=== PATIENT | female | born 1980 | race Caucasian/White ===

== ENCOUNTER → 2018-09-22 | Outpatient (CLI) | payer BC ==
[2018-09-22 14:27] VITALS: BP 116/72; PULSE 66; TEMP 97.7; BMI 35.3
--- NOTE | 2018-09-22 16:48 | P.HPOB ---
History of Present Illness H&P Date: 09/22/18 Chief Complaint: The patient is here for her routine gynecologic exam. This is a 38-year-old with an LMP of 09/18/18. The patient is here to establish with this office. She has been using condoms. She states her boyfriend had a sexual relationship outside of their relationship recently where he did not use a condom. He tested positive for chlamydia. He and the patient were treated with a one-time dose of Zithromax. She denies having vaginal discharge. They completed the Zithromax this past week. She states it is been about 8 years since her last pelvic exam. Her menses are regular every month lasting 7 days with 3 days of heavier flow. Her flow can be very heavy at times where she has to change her protection up to every 15 minutes. She states she occasionally has brief pelvic pains in the area of her ovaries. She denies fever . She denies any current pain. Review of Systems She states she lost about 90 pounds, but she has gained about 25 pounds back. She has been on phentiramine for weight loss. She denies respiratory, cardiac, or G.I. problems. Past Medical History Past Medical History: Asthma (Mild) Additional Past Medical History / Comment(s): kidney stones, and possible lupus. 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 She was treated for possible chlamydia after her boyfriend was diagnosed with chlamydia in 2018. History of Any Multi-Drug Resistant Organisms: None Reported Past Surgical History: No Surgical Hx Reported Past Psychological History: No Psychological Hx Reported, Anxiety Smoking Status: Current every day smoker (Half a pack per day) Past Alcohol Use History: Rare (2 per month) Past Drug Use History: Marijuana (Infrequently) Additional History: She is single but has been with her boyfriend since 2016. She does not live with him. 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 - Past Family History Mother Family Medical History: Diabetes Mellitus Additional Family Medical History / Comment(s): Maternal great-grandmother had ovarian cancer. Medications and Allergies Home Medications Medication Instructions Recorded Confirmed Type Phentermine HCl PO DAILY 09/22/18 History Allergies Allergy/AdvReac Type Severity Reaction Status Date / Time cephalexin monohydrate Allergy Unknown Verified 09/22/18 14:24 [From Keflex] ciprofloxacin [From Cipro] Allergy Unknown Verified 09/22/18 14:24 ciprofloxacin HCl Allergy Unknown Verified 09/22/18 14:24 [From Cipro] lactose AdvReac Unknown Verified 09/22/18 14:24 Exam Vital Signs Temp Pulse BP 09/22/18 14:24 97.7 F 66 116/72 Intake and Output 09/22/18 09/22/18 09/22/18 06:59 14:59 22:59 Other: Weight 93.44 kg Height 5'4", weight 206 pounds, BMI 35.4. This is a well-developed well-nourished heavyset female who is alert and oriented times 3 in no acute distress. HEENT: Within normal limits. NECK: Supple without mass or thyromegaly. CHEST AND LUNGS: Clear to auscultation. HEART: Regular rate and rhythm. BREASTS: Are without mass or discharge. AXILLARY EXAM: Negative for adenopathy. BACK: Negative for CVA tenderness. ABDOMEN: Soft, nontender, without palpable masses. PELVIC EXAM: Normal external genitalia. Cervix and vagina appear normal. There is no unusual discharge. The cervix does not appear inflamed. There is no cervical motion tenderness. There is no evidence of prolapse. The uterus is midposition, nongravid size and nontender. There are no palpable adnexal masses or tenderness. RECTAL EXAM: negative for mass or tenderness and is negative for occult blood. EXTREMITIES: Nontender. IMPRESSION: 1. 38-year-old female with normal gynecologic exam, currently using condoms. 2. The patient was treated for possible chlamydia after her boyfriend was diagnosed with this after admitting a sexual encounter outside of their relationship. 3. Intermittent brief pelvic pains in the past with no current symptoms and no significant physical findings at this time. 4. Mild hypermenorrhea. PLAN: 1. Pap smear was performed. 2. Self breast awareness was discussed with the patient. 3. GC and chlamydia testing from the cervix have been obtained. Will also do blood testing for STDs including HIV, RPR, hepatitis B surface antigen, and hepatitis C antibody. 4. STD prevention was discussed. I stress the importance of being in a monogamous relationship and using condoms to help prevent STDs. 5. We discussed other control options including oral contraception, IUD in tubal sterilization. At this time I do not feel she is a good candidate for oral contraception since she is a smoker over the age of 35. She'll consider the options including the Mirena IUD. 6. Meclofenamate sodium 100 mg TID PRN for heavy menstrual flow up to 6 days per cycle. The patient will keep a menstrual calendar. 7. If her hypermenorrhea has not significantly improved, we will consider other options including oral contraception if she stops smoking, Mirena IUD and tubal sterilization with endometrial ablation. 8. She will also return in one year and PRN.
[2018-09-23 04:58] LABS: HIV 1 AB Non-Reactive (Non-Reactive); HIV AB P24 Non-Reactive (Non-Reactive); HIV P24 AG Non-Reactive (Non-Reactive)
[2018-09-23 12:03] LABS: Hepatitis C IgG Antibody Non-Reactive (Non-Reactive)
== END | disposition home or self-care (01) ==
LOC: WWCWWP 14:02
PROVIDERS: ATTEND Obstetrics & Gynecology
DX: Z11.3 Encounter for screening for infections with a predominantly sexual mode of transmission (principal)
CPT/HCPCS: 36415; 86780; 86803; 87340; 87390

== ENCOUNTER → 2019-07-15 | Outpatient (CLI) | payer OTHER ==
--- NOTE | 2019-07-15 12:51 | XR ---
EXAMINATION TYPE: XR knee limited RT DATE OF EXAM: 07/15/2019 CLINICAL HISTORY: Right knee pain for years. TECHNIQUE: Two views of the right knee are obtained. COMPARISON: None. FINDINGS: There is no acute fracture/dislocation evident in right knee. Mild to moderate narrowing m edial tibiofemoral compartment with mild spurring. Mild narrowing patellofemoral compartment and lat eral tibiofemoral compartment. Increased density suprapatellar bursa suspicious for small to moderate size joint effusion. IMPRESSION: As above.
== END | disposition home or self-care (01) ==
LOC: RADXRMAIN 12:28
PROVIDERS: ATTEND Internal Medicine
DX: M89.8X6 Other specified disorders of bone, lower leg (principal)

== ENCOUNTER → 2019-07-29 | Outpatient (CLI) | payer OTHER | END | disposition home or self-care (01) | LOC: RADUSWWP 12:32 | PROVIDERS: ATTEND Internal Medicine | DX: Z53.9 Procedure and treatment not carried out, unspecified reason (principal) ==

== ENCOUNTER 2019-08-02 00:51 | Emergency (ER) | payer OTHER ==
[2019-08-02 01:02] VITALS: TEMP 98.1
[2019-08-02] MEDS ORDERED: ONDANSETRON 4 MG/2 ML VIAL IVP STA (01:26)
[2019-08-02 01:43] LABS: Appearance,Urine Clear (Clear); Bilirubin,Urine Negative (Negative); Blood,Urine Negative (Negative); Color,Urine Yellow; Glucose,Urine (UA) Negative (Negative); Ketones,Urine Negative (Negative); Leukocyte Esterase,Urine Negative (Negative); Nitrite,Urine Negative (Negative); PH, Urine 5.5 (5.0-8.0); Protein,Urine Negative (Negative); Specific Gravity,Urine 1.029 (1.001-1.035); Urobilinogen,Urine <2.0 mg/dL (<2.0)
[2019-08-02 01:44] LABS: Basophils # (A) 0.1 k/uL (0-0.2); Basophils % (A) 2 %; Eosinophils # (A) 0.2 k/uL (0-0.7); Eosinophils % (A) 3 %; HCT 37.6 % (34.0-46.0); HGB 12.4 gm/dL (11.4-16.0); Lymphocytes # (A) 1.9 k/uL (1.0-4.8); Lymphocytes % (A) 24 %; MCH 29.7 pg (25.0-35.0); MCHC 33.1 g/dL (31.0-37.0); MCV 89.8 fL (80.0-100.0); Mean Platelet Volume 7.1; Monocytes # (A) 0.4 k/uL (0-1.0); Monocytes % (A) 5 %; Neutrophils # (A) 5.2 k/uL (1.3-7.7); Neutrophils % (A) 66 %; Platelet Count 193 k/uL (150-450); RBC 4.19 m/uL (3.80-5.40); RDW 13.9 % (11.5-15.5)
[2019-08-02 01:51] LABS: ALT 31 U/L (9-52); AST 21 U/L (14-36); African American GFR (CKD) >90 (>60 ml/min/1.73 sqM); Albumin 4.4 g/dL (3.5-5.0); Alkaline Phosphatase 75 U/L (38-126); Amylase 49 U/L (30-110); Anion Gap 8 mmol/L; Blood Urea Nitrogen 18 mg/dL (7-17); Calcium 9.9 mg/dL (8.4-10.2); Carbon Dioxide 27 mmol/L (22-30); Chloride 106 mmol/L (98-107); Glucose 118 mg/dL (74-99); Potassium 3.8 mmol/L (3.5-5.1); Sodium 141 mmol/L (137-145); Total Bilirubin 0.2 mg/dL (0.2-1.3); Total Protein 7.3 g/dL (6.3-8.2)
[2019-08-02] MEDS ORDERED: KETOROLAC 30 MG/ML 1 ML VIAL IVP STA (02:52)
[2019-08-02 03:00] VITALS: BP 121/76; PULSE 60; RESP 16
--- NOTE | 2019-08-02 03:06 | CT ---
EXAM: CT Abdomen and Pelvis With Intravenous Contrast CLINICAL HISTORY: ITS.REASON CT Reason: abd pain TECHNIQUE: Axial computed tomography images of the abdomen and pelvis with intravenous contrast. CTDI is 18 mGy and DLP is 626 mGy-cm. This CT exam was performed using one or more of the following dose reduction techniques: automated exposure control, adjustment of the mA and/or kV according to patient size, and/or use of iterative reconstruction technique. COMPARISON: 11/05/15 CT abdomen FINDINGS: Lung bases: No mass. No consolidation. ABDOMEN: Liver: Mild steatosis. Gallbladder and bile ducts: Unremarkable. Pancreas: Unremarkable. Spleen: Unremarkable. Adrenals: Unremarkable. Kidneys and ureters: No hydronephrosis. Punctate nonobstructive stone in the left kidney. Stomach and bowel: No bowel obstruction. No bowel wall thickening. Copious amounts of stool throughout the colon. PELVIS: Appendix: No evidence of appendicitis. Bladder: Unremarkable. Reproductive: Fluid-filled endometrium. 3 cm bilateral ovaries. ABDOMEN and PELVIS: Intraperitoneal space: Unremarkable. Bones/joints: No acute fractures. Soft tissues: Unremarkable. Vasculature: No abdominal aortic aneurysm. Lymph nodes: No enlarged lymph nodes. IMPRESSION: 1. Punctate nonobstructive stone in the left kidney. 2. Mild hepatic steatosis 3. Copious amounts of stool throughout the colon. 4. Fluid-filled endometrium, possibly physiologic. No free fluid in the pelvis.
--- NOTE | 2019-08-02 03:14 | ED ---
Abdominal Pain HPI - General Chief Complaint: Abdominal Pain Stated Complaint: Abd Pain Time Seen by Provider: 08/02/19 01:08 Source: patient Mode of arrival: ambulatory Limitations: no limitations - History of Present Illness Initial Comments: Patient is a 39-year-old female presenting to the emergency department with a chief complaint of abdominal pain. Patient reports intermittent left lower quadrant pain for the past 2 months. Patient reports over the last week the pain is increased in severity. Patient reports the pain is not related to food intake. Patient does report nausea but no vomiting. Patient reports alternating constipation and diarrhea over the past week. Patient reports her last bowel movement was today. Patient denies increased urgency, frequency or dysuria. Patient states that she could possibly be . - Related Data Home Medications Medication Instructions Recorded Confirmed Phentermine HCl PO DAILY 09/22/18 Previous Rx's Medication Instructions Recorded Meclofenamate Sodium 100 mg PO TID PRN #25 capsule 09/22/18 metroNIDAZOLE [Flagyl] 500 mg PO BID 7 Days #14 tab 09/30/18 Pantoprazole Sodium [Protonix] 20 mg PO DAILY #14 tablet. 08/02/19 Allergies Allergy/AdvReac Type Severity Reaction Status Date / Time cephalexin monohydrate Allergy Unknown Verified 08/02/19 01:02 [From Keflex] ciprofloxacin [From Cipro] Allergy Unknown Verified 08/02/19 01:02 ciprofloxacin HCl Allergy Unknown Verified 08/02/19 01:02 [From Cipro] lactose AdvReac Unknown Verified 08/02/19 01:02 Review of Systems ROS Statement: Those systems with pertinent positive or pertinent negative responses have been documented in the HPI. ROS Other: All systems not noted in ROS Statement are negative. Past Medical History Past Medical History: Asthma Additional Past Medical History / Comment(s): kidney stones, and possible lupus. 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 She was treated for possible chlamydia after her boyfriend was diagnosed with chlamydia in 2018. History of Any Multi-Drug Resistant Organisms: None Reported Past Surgical History: No Surgical Hx Reported Past Psychological History: Anxiety Smoking Status: Current every day smoker Past Alcohol Use History: Rare Past Drug Use History: Marijuana - Past Family History Mother Family Medical History: Diabetes Mellitus Additional Family Medical History / Comment(s): Maternal great-grandmother had ovarian cancer. General Exam Limitations: no limitations General appearance: alert, in no apparent distress Head exam: Present: atraumatic, normocephalic, normal inspection Eye exam: Present: normal appearance, PERRL, EOMI Pupils: Present: normal accommodation ENT exam: Present: normal exam, mucous membranes moist, normal external ear exam Neck exam: Present: normal inspection, full ROM Respiratory exam: Present: normal lung sounds bilaterally Cardiovascular Exam: Present: regular rate, normal rhythm, normal heart sounds GI/Abdominal exam: Present: soft, tenderness (Left lower quadrant tenderness. McBurney point tenderness, negative Rovsing, negative obturator, negative psoas. Left lower quadrant tenderness.), normal bowel sounds. Absent: distended, guarding, rebound Extremities exam: Present: normal inspection, full ROM, normal capillary refill, other Back exam: Present: normal inspection, full ROM Neurological exam: Present: alert, oriented X3 Psychiatric exam: Present: normal affect, normal mood Skin exam: Present: warm, intact, normal color Course Vital Signs 08/02/19 08/02/19 00:59 02:59 Temperature 98.1 F Pulse Rate 94 60 Respiratory 20 16 Rate Blood Pressure 127/75 121/76 O2 Sat by Pulse 98 96 Oximetry Medical Decision Making - Medical Decision Making Patient is a 39-year-old female presenting to the emergency department with the chief complaint of left lower quadrant abdominal pain. Patient has had the pain in the left lower quadrant for approximately 2 months as increased in severity over the past week patient does report nausea but no vomiting. Patient is also very episodes of constipation and diarrhea. On physical examination patient does appear to have right lower quadrant and right upper quadrant tenderness as well patient does have positive McBurney point tenderness negative Rovsing obturator or psoas. Patient does have negative [place]. Patient reports pain is not related to food intake. Patient was unaware of the right upper quadrant and right lower quadrant pain until I palpated regions. CT of the abdomen and pelvis is indicative of a renal stone in the left kidney that is nonobstructive. Mild hepatic steatosis. Copious amounts of stool noted throughout the colon. I suspect the patient to have somewhat pain due to the moderate amount of stool retention in the colon. CBC, CMP and UA unremarkable. Patient will be given magnesium citrate and will be discharged with Zofran. Patient advised to follow with primary care. Patient vised alternate between Tylenol and ibuprofen for pain control. Strict return parameters were thoroughly discussed with patient is understanding and agreeable. On discharge patient vital stable. Case discus sed physician. - Lab Data Result diagrams: 08/02/19 01:33 08/02/19 01:33 Lab Results 08/02/19 08/02/19 08/02/19 Range/Units 01:33 01:33 01:33 WBC 8.0 (3.8-10.6) k/uL RBC 4.19 (3.80-5.40) m/uL Hgb 12.4 (11.4-16.0) gm/dL Hct 37.6 (34.0-46.0) % MCV 89.8 (80.0-100.0) fL MCH 29.7 (25.0-35.0) pg MCHC 33.1 (31.0-37.0) g/dL RDW 13.9 (11.5-15.5) % Plt Count 193 (150-450) k/uL Neutrophils % 66 % Lymphocytes % 24 % Monocytes % 5 % Eosinophils % 3 % Basophils % 2 % Neutrophils # 5.2 (1.3-7.7) k/uL Lymphocytes # 1.9 (1.0-4.8) k/uL Monocytes # 0.4 (0-1.0) k/uL Eosinophils # 0.2 (0-0.7) k/uL Basophils # 0.1 (0-0.2) k/uL Sodium 141 (137-145) mmol/L Potassium 3.8 (3.5-5.1) mmol/L Chloride 106 (98-107) mmol/L Carbon Dioxide 27 (22-30) mmol/L Anion Gap 8 mmol/L BUN 18 H (7-17) mg/dL Creatinine 0.68 (0.52-1.04) mg/dL Est GFR (CKD-EPI)AfAm >90 (>60 ml/min/1.73 sqM) Est GFR (CKD-EPI)NonAf >90 (>60 ml/min/1.73 sqM) Glucose 118 H (74-99) mg/dL Calcium 9.9 (8.4-10.2) mg/dL Total Bilirubin 0.2 (0.2-1.3) mg/dL AST 21 (14-36) U/L ALT 31 (9-52) U/L Alkaline Phosphatase 75 (38-126) U/L Total Protein 7.3 (6.3-8.2) g/dL Albumin 4.4 (3.5-5.0) g/dL Amylase 49 (30-110) U/L Lipase 59 (23-300) U/L Urine Color Urine Appearance (Clear) Urine pH (5.0-8.0) Ur Specific [place] (1.001-1.035) Urine Protein (Negative) Urine Glucose (UA) (Negative) Urine Ketones (Negative) Urine Blood (Negative) Urine Nitrite (Negative) Urine Bilirubin (Negative) Urine Urobilinogen (<2.0) mg/dL Ur Leukocyte Esterase (Negative) Urine HCG, Qual Not Detected (Not Detectd) 08/02/19 Range/Units 01:33 WBC (3.8-10.6) k/uL RBC (3.80-5.40) m/uL Hgb (11.4-16.0) gm/dL Hct (34.0-46.0) % MCV (80.0-100.0) fL MCH (25.0-35.0) pg MCHC (31.0-37.0) g/dL RDW (11.5-15.5) % Plt Count (150-450) k/uL Neutrophils % % Lymphocytes % % Monocytes % % Eosinophils % % Basophils % % Neutrophils # (1.3-7.7) k/uL Lymphocytes # (1.0-4.8) k/uL Monocytes # (0-1.0) k/uL Eosinophils # (0-0.7) k/uL Basophils # (0-0.2) k/uL Sodium (137-145) mmol/L Potassium (3.5-5.1) mmol/L Chloride (98-107) mmol/L Carbon Dioxide (22-30) mmol/L Anion Gap mmol/L BUN (7-17) mg/dL Creatinine (0.52-1.04) mg/dL Est GFR (CKD-EPI)AfAm (>60 ml/min/1.73 sqM) Est GFR (CKD-EPI)NonAf (>60 ml/min/1.73 sqM) Glucose (74-99) mg/dL Calcium (8.4-10.2) mg/dL Total Bilirubin (0.2-1.3) mg/dL AST (14-36) U/L ALT (9-52) U/L Alkaline Phosphatase (38-126) U/L Total Protein (6.3-8.2) g/dL Albumin (3.5-5.0) g/dL Amylase (30-110) U/L Lipase (23-300) U/L Urine Color Yellow Urine Appearance Clear (Clear) Urine pH 5.5 (5.0-8.0) Ur Specific [place] 1.029 (1.001-1.035) Urine Protein Negative (Negative) Urine Glucose (UA) Negative (Negative) Urine Ketones Negative (Negative) Urine Blood Negative (Negative) Urine Nitrite Negative (Negative) Urine Bilirubin Negative (Negative) Urine Urobilinogen <2.0 (<2.0) mg/dL Ur Leukocyte Esterase Negative (Negative) Urine HCG, Qual (Not Detectd) Disposition Clinical Impression: Abdominal pain Disposition: HOME SELF-CARE Condition: Stable Instructions (If sedation given, give patient instructions): Abdominal Pain (ED) Additional Instructions: Please take prescribed medication as directed. Please return to emergency department is symptoms worsen. Alternate between Tylenol and ibuprofen for pain control. Prescriptions: Pantoprazole Sodium [Protonix] 20 mg PO DAILY #14 tablet.dr Is patient prescribed a controlled substance at d/c from ED?: No Referrals: Marie Luis MD [Primary Care Provider] - 1-2 days Time of Disposition: 04:32
[2019-08-02] MEDS ORDERED: MAGNESIUM CITRATE 296 ML BOTTLE PO ONE (04:14)
== END 2019-08-02 04:29 | disposition home or self-care (01) ==
LOC: EC 00:51
DX: R10.32 Left lower quadrant pain (principal); R11.0 Nausea; R19.7 Diarrhea, unspecified; K76.0 Fatty (change of) liver, not elsewhere classified; N20.0 Calculus of kidney; F17.200 Nicotine dependence, unspecified, uncomplicated; Z79.899 Other long term (current) drug therapy; Z88.1 Allergy status to other antibiotic agents; Z91.048 Other nonmedicinal substance allergy status
CPT/HCPCS: 99284; 96374; 96375; 36415; 80053; 82150; 83690; 85025; 81003; 81025; 74177; J2405; J1885; Q9967

== ENCOUNTER → 2019-12-08 | Outpatient (CLI) | payer BC, OTHER ==
[2019-12-08 11:31] VITALS: BP 123/85; PULSE 86; RESP 18; TEMP 97.7
--- NOTE | 2019-12-08 13:47 | P.HPOB ---
History of Present Illness H&P Date: 12/08/19 Chief Complaint: The patient is here for her routine gynecologic exam. This is a 39-year-old with an LMP of 11/06/2019. The patient has not been using anything for control. She states she has been in a relationship on and off with her boyfriend since 2015. She was last sexually active earlier this month and states he has been her only partner during the past 3 years. They were both treated for chlamydia in September 2018. She had an abnormal Pap smear on 09/22/2018 which showed ASCUS and positive high-risk HPV. 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 The patient states she has been experiencing intermittent abdominal and pelvic cramping and abdominal bloating fairly frequently over the past 1-1/2 years. She states that at times her abdomen can look very big and almost in appearance. She has done several tests that have all been negative. She feels that the cramping seems to occur around the time of ovulation, but can occur any time during the month. Her menstrual periods have been heavier with clots and are lasting one week. Menstrual periods are regular every month. She has not been using control and not doing anything to prevent , yet she states she is not interested in getting . Review of Systems She is gained about 30 pounds over the past year. Respiratory: She is getting over a cold and has recently treated for asthma and has a new inhaler for this. She denies cardiac or GI problems, but has been having abdominal bloating and distention as in the HPI. Past Medical History Past Medical History: Asthma Additional Past Medical History / Comment(s): kidney stones, and possible lupus. 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 She was treated for possible chlamydia after her boyfriend was diagnosed with chlamydia in 2018. Also treated for Trichomonas in the past. Low-grade MADAY cervical biopsy on 12/07/2018. History of Any Multi-Drug Resistant Organisms: None Reported Past Surgical History: No Surgical Hx Reported Past Psychological History: Anxiety Smoking Status: Current some day smoker (0-1 per day) Past Alcohol Use History: Rare Past Drug Use History: Marijuana (Occasional marijuana usage.) Additional History: She is single and has been with her boyfriend on and off since 2015. She does not live with him. 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 - Past Family History Mother Family Medical History: Diabetes Mellitus Additional Family Medical History / Comment(s): Maternal great-grandmother had ovarian cancer. Medications and Allergies Home Medications Medication Instructions Recorded Confirmed Type Phentermine HCl 1 tab PO DAILY 09/22/18 12/08/19 History Pantoprazole Sodium [Protonix] 20 mg PO DAILY #14 tablet. 08/02/19 12/08/19 Rx Albuterol Inhaler [Ventolin Hfa 1 - 2 puff INHALATION RT-Q6H PRN 12/08/19 12/08/19 History Inhaler] Iron 18 mg PO DAILY 12/08/19 12/08/19 History Loratadine [Claritin] 10 mg PO DAILY 12/08/19 12/08/19 History Montelukast [Singulair] 10 mg PO DAILY 12/08/19 12/08/19 History Oxybutynin ER [Ditropan Xl] 0 mg PO DAILY 12/08/19 12/08/19 History methylPREDNISolone [Medrol Dose 4 mg PO DIRECTED 12/08/19 12/08/19 History Pack] Allergies Allergy/AdvReac Type Severity Reaction Status Date / Time cephalexin monohydrate Allergy Unknown Verified 12/08/19 11:21 [From Keflex] ciprofloxacin [From Cipro] Allergy Unknown Verified 12/08/19 11:21 ciprofloxacin HCl Allergy Unknown Verified 12/08/19 11:21 [From Cipro] lactose AdvReac Unknown Verified 12/08/19 11:21 Exam Vital Signs Temp Pulse Resp BP Pulse Ox 12/08/19 11:27 97.7 F 86 18 123/85 95 Intake and Output 12/07/19 12/08/19 12/08/19 22:59 06:59 14:59 Other: Weight 106.141 kg Height 5 feet 4 inches, weight 234 pounds, BMI 40.2. This is a well-developed well-nourished white female who is alert and oriented times 3 in no acute distress. HEENT: Within normal limits. NECK: Supple without mass or thyromegaly. CHEST AND LUNGS: Moderate scattered inspiratory rhonchi with mildly prolonged expiration bilaterally. The rhonchi improve slightly after coughing. HEART: Regular rate and rhythm. BREASTS: Are without mass or discharge. AXILLARY EXAM: Negative for adenopathy. BACK: Negative for CVA tenderness. ABDOMEN: Soft, obese, nontender, without palpable masses. PELVIC EXAM: Normal external genitalia. Cervix and vagina appear normal. There is no unusual discharge. There is no cervical motion tenderness. There is no evidence of prolapse. The uterus is midposition, nongravid size and nontender. There are no palpable adnexal masses or tenderness. RECTAL EXAM: negative for mass or tenderness. EXTREMITIES: Nontender. IMPRESSION: 1. 39-year-old female with normal gynecologic exam, currently not actively preventing . 2. At risk for STDs. Previous treated for chlamydia and Trichomonas. 3. History of low-grade MADAY colposcopic biopsy on 12/07/2018 after ASCUS Pap smear and positive high-risk HPV testing on 09/22/2018. 4. Hypermenorrhea. 5. Abnormal lung auscultation. The patient has seen her primary care physician for this and is being treated for this. She will continue to follow up with Dr. Luis for her lung condition. 6. Intermittent pelvic cramping and abdominal bloating over the past 1-1/2 years without any significant physical findings at this time. Her primary care physician had advised her to get a pelvic ultrasound back in July, but she did not have this done. PLAN: 1. Pap smear was performed. High-risk HPV testing will also be performed. 2. Self breast awareness was discussed with the patient. 3. GC and chlamydia testing from the cervix have been obtained. Trichomonas nucleic acid testing was also obtained. 4. Pelvic ultrasound was recommended and the order slip was given to the patient for this. 5. Urine will be sent for hCG. 6. Trial of meclofenamate sodium 100 mg by mouth 3 times a day when necessary for heavy menstrual flow up to 6 days per cycle. The electronic prescription will be sent to [facility] on . 7. She was advised to return in one year for her annual well woman exam and as needed.
--- NOTE | 2019-12-15 13:14 | P.PN ---
Progress Note - Text Progress Note Date: 12/15/19 OUTPATIENT FOLLOW-UP NOTE TEST(S)/RESULTS: Test results from 12/08/2019 include negative Pap smear, negative high-risk HPV, negative GC, negative chlamydia, negative Trichomonas, negative urine hCG and urinalysis showing trace protein and otherwise was negative. Affirm nucleic acid testing was positive for [place]. METHOD OF NOTIFICATION: A message with test results was left on the patient's voicemail. PATIENT COMMENTS: DIAGNOSIS: Possible bacterial vaginosis. Negative Pap smear co-testing, with negative vaginal STD screening as above. DISCUSSION: The patient was advised to have a pelvic ultrasound done for her symptoms. This apparently has not been done yet. On the message she was asked to call if she has vaginal discharge or odor. PLAN: Await pelvic ultrasound. She was instructed to call if she is having BV symptoms.
== END ==
LOC: WWCWWP 11:19
PROVIDERS: ATTEND Obstetrics & Gynecology
DX: Z53.9 Procedure and treatment not carried out, unspecified reason (principal)

== ENCOUNTER → 2021-01-10 | Outpatient (CLI) | payer OTHER ==
[2021-01-10 09:47] VITALS: BP 120/80; PULSE 83; RESP 18; TEMP 98.1
--- NOTE | 2021-01-10 11:30 | P.HPOB ---
History of Present Illness H&P Date: 01/10/21 Chief Complaint: The patient is here for her routine gynecologic exam. This is a 40-year-old with an LMP of 12/10/2020. The patient states she recently broke up with her boyfriend. She states she told her that he had been with somebody else who had chlamydia. She does not believe she has had sex with him since that time. She denies any unusual discharge. She states she has been treated for bacterial vaginosis during the past year. She denies any vaginal odor. She continues to have fairly heavy menstrual periods with clots and she occasionally soaks through her protection. She states the meclofenamate sodium has been helpful and would like to continue on with this. Review of Systems She is gained about 16 pounds over the past year. She denies respiratory or cardiac problems. GI: Frequent constipation. Past Medical History Past Medical History: Asthma Additional Past Medical History / Comment(s): kidney stones, and possible lupus. 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 She was treated for possible chlamydia after her boyfriend was diagnosed with chlamydia in 2018. Also treated for Trichomonas in the past. Low-grade MADAY cervical biopsy on 12/07/2018. History of Any Multi-Drug Resistant Organisms: None Reported Past Surgical History: No Surgical Hx Reported Past Psychological History: Anxiety Smoking Status: Former smoker Past Alcohol Use History: Rare (About 4 per year) Additional Past Alcohol Use History / Comment(s): She quit smoking in 2019. Past Drug Use History: Marijuana Additional Drug Use History / Comment(s): Previously used marijuana but today on 01/10/2021 she states she has quit. - Past Family History Mother Family Medical History: Diabetes Mellitus Additional Family Medical History / Comment(s): Maternal great-grandmother had ovarian cancer. Medications and Allergies Home Medications Medication Instructions Recorded Confirmed Type Pantoprazole Sodium [Protonix] 20 mg PO DAILY #14 tablet. 08/02/19 01/10/21 Rx Albuterol Inhaler (Mhu) [Ventolin 1 - 2 puff INHALATION RT-Q6H PRN 12/08/19 01/10/21 History Hfa Inhaler] Meclofenamate Sodium 100 mg PO TID PRN #30 capsule 12/08/19 01/10/21 Rx Oxybutynin ER [Ditropan Xl] 0 mg PO DAILY 12/08/19 01/10/21 History Cetirizine HCl 10 mg PO DAILY 01/10/21 01/10/21 History Triamcinolone 0.025% Cream 1 applic TOPICAL DAILY 01/10/21 01/10/21 History [Kenalog 0.025% Cream] Allergies Allergy/AdvReac Type Severity Reaction Status Date / Time cephalexin monohydrate Allergy Unknown Verified 01/10/21 09:40 [From Keflex] ciprofloxacin [From Cipro] Allergy Unknown Verified 01/10/21 09:40 ciprofloxacin HCl Allergy Unknown Verified 01/10/21 09:40 [From Cipro] lactose AdvReac Unknown Verified 01/10/21 09:40 Exam Vital Signs Temp Pulse Resp BP Pulse Ox 01/10/21 09:40 98.1 F 83 18 120/80 98 Intake and Output 01/09/21 01/10/21 01/10/21 22:59 06:59 14:59 Other: Weight 113.398 kg Height 5 feet 4 inches, weight 250 pounds, BMI 42.9. This is a well-developed well-nourished heavyset white female who is alert and oriented times 3 in no acute distress. HEENT: Within normal limits. NECK: Supple without mass or thyromegaly. CHEST AND LUNGS: Clear to auscultation. HEART: Regular rate and rhythm. BREASTS: Are without mass or discharge. AXILLARY EXAM: Negative for adenopathy. BACK: Negative for CVA tenderness. ABDOMEN: Soft, obese, nontender, without palpable masses. PELVIC EXAM: Normal external genitalia. Cervix and vagina appear normal. There is a small amount of thin acosta discharge in the back of the vagina without odor. There is no cervical motion tenderness. There is no evidence of prolapse. The uterus is midposition, nongravid size and nontender. There are no palpable adnexal masses or tenderness. RECTAL EXAM: negative for mass or tenderness. EXTREMITIES: Nontender. IMPRESSION: 1. 40-year-old female with history of bacterial vaginosis during the past year slight thin acosta discharge in the back of the vagina. 2. She has broken up with her ex-boyfriend who admitted to having sex with someone else who had chlamydia. The patient believes she has not had sex with her ex-boyfriend after that encounter. She is currently not seeing anybody at this time. 3. Mild hypermenorrhea improved with meclofenamate sodium. PLAN: 1. Pap smear was deferred since she had a normal one on 12/08/2019. 2. Self breast awareness was discussed with the patient. 3. Continue meclofenamate sodium 100 mg 3 times a day when necessary for heavy menstrual flow up to 6 days per cycle. The electronic prescription will be sent to the [facility] pharmacy. We have discussed other options for her hypermenorrhea including Mirena IUD and endometrial ablation. She would like to continue with meclofenamate sodium at this time. 4. STD prevention was discussed. I have stressed the importance of limiting sexual partners and I have recommended that she use condoms if she is sexually active. 5. GC and chlamydia testing were obtained from the cervix. 6. Affirm vaginitis panel was obtained from the vagina. She states she has been diagnosed with bacterial vaginosis in the past. I have recommended that she avoid getting soap into the vagina as well as chlorinated water or saliva. She states she did previously wash inside of the vagina regularly. I have advised that she avoid douching and also avoid washing inside of the vagina, which may wash out normal bacterial gricel and increase the chances for changes including bacterial vaginosis. 7. Weight control was discussed. I have stressed the importance of good nutrition with regular meals and adequate fiber in her diet. Have also recommended regular exercise. I have recommended against taking medications or supplements to lose weight. We have also discussed bariatric surgery options as well if she continues to have weight control problems. 8. STD blood tests including HIV, RPR, hepatitis B surface antigen, and hepatitis C antibody will be drawn today. 9. She was advised to return in one year for her annual well woman exam.
[2021-01-10 20:49] LABS: HIV 2 AB Non-Reactive (Non-Reactive); HIV AB P24 Non-Reactive (Non-Reactive); HIV P24 AG Non-Reactive (Non-Reactive)
[2021-01-11 03:13] LABS: Hepatitis B Surface Antigen Non-Reactive (Non-Reactive); Hepatitis C IgG Antibody Non-Reactive (Non-Reactive)
== END | disposition home or self-care (01) ==
LOC: WWCWWP 09:33
PROVIDERS: ATTEND Obstetrics & Gynecology
DX: Z11.3 Encounter for screening for infections with a predominantly sexual mode of transmission (principal)
CPT/HCPCS: 86780; 86803; 87340; 87390